=== PATIENT | male | born 1985 | race Caucasian/White ===

== ENCOUNTER 2017-01-10 06:47 | Inpatient (IN) | payer OTHER ==
[2017-01-09 09:50] VITALS: BMI 26.6
--- NOTE | 2017-01-10 05:49 | HP ---
HISTORY OF PRESENT ILLNESS: Mr. Cheung is a pleasant 31-year-old man who presents for evaluation o f several years with low back pain that has steadily been worsening as well as more recently bilatera l L5 radiculopathies right much worse than left. He and his noticed him limping a great deal in the last three months and he has noted weakness and numbness in his right leg. He is in the [facility] and has been subjected to a great deal of physical strain over the last 13 years. MRI on d isk provided reveals bilateral L5 pars defects and grade 1 slip at L5-S1 with associated severe noe inal compromise bilaterally. He has been treating this with injections and PT with no help, and he i s seeking more definitive treatment. PAST MEDICAL HISTORY: Significant for osteoarthritis and tinnitus. CURRENT MEDICATIONS: Gabapentin, naproxen, cyclobenzaprine, and ibuprofen. ALLERGIES: No known drug allergies. PAST SURGICAL HISTORY: [place]-tooth extraction. PHYSICAL EXAMINATION: The patient is alert and oriented x3. Gait is significantly altered and antal gic. Lower extremity motor exam is normal other than right lower extremity knee extension, ankle faye siflexion, which fits 4-/5 in each movement. He has no sensory disturbance that I can discern. Refl exes are diminished bilaterally at the patellar grading 1+ bilaterally. ASSESSMENT: Lumbar [facility] spondylolisthesis. PLAN: Discussed lumbar fusion with the patient and Dr. Asencio. He also then met with the patient, re viewed imaging, and advocated for an L5-S1 facetectomy and fusion. He explained to the patient the r isks, benefits, and alternatives to the procedure. The patient expressed understanding and would lik e to move forward with surgery as discussed. I do believe the patient is mentally competent and capa ble of making medical decisions for himself and we will move forward with surgery as planned. This is Xander Mon PA-C dictating for Dr. Asencio.
[2017-01-10] MEDS ORDERED: Bupivacaine/Epinephrine 0.25% 30 ML VIAL ONE (08:51)
[2017-01-10] MEDS ORDERED: Thrombin 5000 UNITS/5 ML VIAL ONE (08:51)
[2017-01-10] MEDS ORDERED: CEFAZOLIN/Water 2 GM/20 ML SYRINGE ONE ×2 (08:53→15:20)
[2017-01-10] MEDS ORDERED: Midazolam HCl 2 mg/2 ml Vial ONE (08:54)
[2017-01-10] MEDS ORDERED: Fentanyl 250 MCG/5 ML VIAL ONE (09:19)
[2017-01-10] MEDS ORDERED: Fentanyl 100 MCG/2 ML VIAL ONE ×2 (12:42→13:04)
[2017-01-10] MEDS ORDERED: Tamsulosin HCl 0.4 MG CAP ONE (13:00)
--- NOTE | 2017-01-10 13:16 | OP ---
DATE OF PROCEDURE: 01/10/2017 SURGEON: Jaun Asencio M.D. SOLAR INSTALLATION TECHNICIAN: Xander Mon PA-C INDICATION: Pain. DIAGNOSES: Spondylolisthesis with lumbar radiculopathy. PROCEDURE: L5-S1 facetectomy, L5-S1 posterior lateral instrumented fusion L5-S1, placement of allogr aft, placement of autograft. ANESTHESIA: General. TECHNIQUE: The patient was brought into the operating room and placed under general anesthesia. He was flipped from a supine to a prone position on the operating room table. A linear incision was sebsatian nned over the L5-S1 segment. After prepping and draping and after an appropriate operative pause, th e incision was created. The soft tissues were swept away from midline. Self-retaining retractors we re placed in the wound for optimal exposure. After confirming the appropriate level with C-arm fluor oscopy, Adson rongeurs as well as a high-speed cutting drill bit as well as 2, 3 and 4-mm Kerrisons w ere then used to perform facetectomies bilaterally at L5-S1. We then placed pedicle screws with the aid of C-arm fluoroscopy, the pedicles of L5 and S1 bilaterally. An intraoperative 3-D CT scan was t hen performed to confirm appropriate placement of hardware. Rods were then placed across the screw h imtiaz and final tightened under slight distraction. The wound was irrigated. Hemostasis was maintain ed throughout. Allograft and autograft material was then placed within the lateral confines of the i nstrumentation construct. The wound was then closed in anatomic layers and a pressure dressing was a pplied. There were no known procedural complications.
[2017-01-10] MEDS ORDERED: Promethazine HCl 25 MG/ML VIAL ONE (14:41)
[2017-01-10] MEDS ORDERED: Dexamethasone 20 MG/5 ML VIAL ONE (16:11)
[2017-01-10] MEDS ORDERED: Ketorolac Tromethamine 30 MG/ML VIAL ONE (16:11)
[2017-01-10] MEDS ORDERED: Ondansetron HCl/PF 4 MG/2 ML Vial ONE (16:11)
[2017-01-10] MEDS ORDERED: PHENYLEPHRINE-NS 100 MCG/ML 10 ML SYRINGE ONE (16:11)
[2017-01-10] MEDS ORDERED: Propofol 200 MG/20 ML VIAL ONE (16:11)
== END 2017-01-10 15:50 | disposition home or self-care (01) | DRG 460 ==
LOC: SURG A 06:47
PROVIDERS: ADMIT Neurological Surgery; ATTEND Neurological Surgery
PROC: 0SG3071 Fusion of Lumbosacral Joint with Autologous Tissue Substitute, Posterior Approach, Posterior Column, Open Approach (ICD-10-PCS; principal; 2017-01-10)
PROC: 0QB00ZZ Excision of Lumbar Vertebra, Open Approach (ICD-10-PCS; 2017-01-10)
PROC: 0PB40ZZ Excision of Thoracic Vertebra, Open Approach (ICD-10-PCS; 2017-01-10)
DX: M43.16 Spondylolisthesis, lumbar region (principal); F17.220 Nicotine dependence, chewing tobacco, uncomplicated; H93.19 Tinnitus, unspecified ear; M54.16 Radiculopathy, lumbar region; M19.90 Unspecified osteoarthritis, unspecified site; F43.10 Post-traumatic stress disorder, unspecified
CPT/HCPCS: 76001; 96374; C1713; C1768; J1100; J1885; J2250; J2405; J2550; J2704; J3010

== ENCOUNTER 2017-01-12 23:23 | Observation (INO) | payer OTHER, SELFPAY ==
[2017-01-12] MEDS ORDERED: Morphine 4 MG/ML VIAL ONE (23:53)
[2017-01-12] MEDS ORDERED: Ondansetron HCl/PF 4 MG/2 ML Vial ONE (23:53)
[2017-01-13 00:01] LABS: #Eosinphils 0.1 thou/uL (0.0-0.7); #Lymphocytes 1.5 thou/uL (1.20-3.40); #Neutrophils 7.4 thou/uL (1.40-6.50); %Basophils 0.3 % (0.0-1.0); %Eosinophils 0.6 % (0.0-10.0); %Monocytes 10.1 % (0.0-10.0); Hemoglobin 12.3 g/dL (14.0-18.0); Mean Corpuscular HGB CONC 33.8 g/dL (32.0-36.0); Mean Corpuscular Hemoglobin 30.1 pg (27.0-31.0); Mean Platelet Volume 7.1 fL (7.4-10.4); Platelet Count 203 thou/uL (130-400); RBC Distribution Width 11.5 % (11.5-14.5); Red Blood Cell (RBC) Count 4.09 mill/uL (4.70-6.10)
[2017-01-13 00:22] LABS: ALT (SGPT) 13 U/L (8-55); AST (SGOT) 22 U/L (5-34); Albumin 3.7 g/dL (3.5-5.0); Alkaline Phosphatase 51 U/L (40-150); Anion Gap 12 mmol/L (10-20); BUN (Urea Nitrogen) 9 mg/dL (8.9-20.6); Bilirubin, Total 1.1 mg/dL (0.2-1.2); CRP (Inflammatory) 26.37 mg/dL (= or < 0.5); Calc. Creatinine Clearance 0 mL/min (70-130); Carbon Dioxide 26 mmol/L (22-29); Chloride 102 mmol/L (98-107); Estimated GFR-MDRD Greater than 90; Glucose 103 mg/dL (70-105); Potassium 3.7 mmol/L (3.5-5.1); Protein, Total 6.7 g/dL (6.0-8.3); Sodium 136 mmol/L (136-145)
[2017-01-13] MEDS ORDERED: Bisacodyl 10 MG SUPP PR PRN (01:18)
[2017-01-13] MEDS ORDERED: traMADol HCl 50 MG TAB PO PRN (01:18)
[2017-01-13] MEDS ORDERED: Milk Of Magnesia 30 ML UDCUP PO PRN (01:18)
[2017-01-13] MEDS ORDERED: Acetaminophen 325 MG TAB PO PRN (01:18)
[2017-01-13] MEDS ORDERED: Fleet Enema 133 ML BOT PR PRN (01:18)
[2017-01-13] MEDS ORDERED: Ondansetron HCl/PF 4 MG/2 ML Vial IVP PRN (01:18)
[2017-01-13] MEDS ORDERED: Mag-Al 1200 mg/1200 mg/30 ML UDCUP PO PRN (01:18)
[2017-01-13] MEDS ORDERED: Promethazine HCl 25 MG/ML VIAL IM PRN (01:18)
[2017-01-13] MEDS ORDERED: Acetaminophen/Codeine 30-300mg Tablet PO PRN (01:18)
[2017-01-13] MEDS: Sodium Chloride 0.9% 1,000 ML IV SCH ×2 (03:31→11:19)
[2017-01-13 03:36] VITALS: BMI 27.3
[2017-01-13] MEDS: Cyclobenzaprine 10 MG TAB PO PRN (04:33)
[2017-01-13] MEDS: Gabapentin 400 MG CAP PO SCH ×3 (07:46→21:00)
[2017-01-13] MEDS: HYDROcodone/Acetaminophen 7.5/325 mg Tablet PO PRN ×3 (07:46→21:00)
--- NOTE | 2017-01-13 07:47 | HP ---
Jarvis Hutchins PA-C, dictating for Yfn Mitchell MD This is a 50-minute initial patient consult in which greater than 50% of the exam was spent in counse ling and coordinating the patient's care. The remainder of the exam was spent in review of the patie nt's medical records and appropriate imaging studies. CHIEF COMPLAINT: Fever and bilateral leg pain, status post lumbar fusion. HISTORY OF PRESENT ILLNESS: Mr. Cheung is a pleasant 31-year-old male who presents as a direct tra nsfer from [facility] at [place] to [facility] for the above complaints. The patient underwent L5-S1 posterior lumbar fusion with Dr. Asencio on 01/10/2017. The patient stat es that he began to experience fairly significant bilateral lower extremity pain one day postoperativ chin. He states that his pain was minimally control with [place] at home. He was also having slight am ount of headache and feeling feverish, so his took his temperature at home and it registered 102 .0 degrees Fahrenheit. She took the patient to the emergency room at [place] and they did extensiv e workup including ruling out a possible pulmonary embolism. In regard to patient's current complain ts, he complaints of incisional back pain as well as pain into the bilateral posterior thighs, bilate ral lateral thighs, lateral calves into the feet. He states it was present preoperatively, but signi ficantly worse on the right than the left, now it is worse on the left than the right. He states he has not been up walking very much due to his severe incisional pain. He also had one episode of urin melani retention and a Nayak catheter was placed at [place] [facility] and 800 mL of urine was ret ained. The patient denies any incontinence. The patient's had stated the incision has remained clean, dry, and intact without any drainage. Review of the patient's CT scan from [place] showed good placement of at the L5-S1 level without malfunction of hardware. PHYSICAL EXAMINATION: The patient is awake, alert, and appropriate. He does appear to be in some pa in. He follows commands in all 4 extremities equally. He is slow to move the bilateral lower extrem ities, but with good encouragement. He appears to have full strength in the bilateral lower extremit ies. He does have intact sensation to light touch throughout. His incision is clean, dry, and intac t without any drainage or dehiscence. He is oriented to person, place, and time. Pupils are equal, round, and reactive bilaterally. IMPRESSION/DIAGNOSIS: Status post lumbar spine fusion with urinary retention and postoperative fever . PLAN: I have discussed in great detail causes postoperative fever and urinary retention with the south edge and his including atelectasis as well as a narcotic pain medications. There was a question at the [place] emergency room regarding MRI of the lumbar spine, but they were unsure if the patie nt's hardware was compatible with MRI and subsequently transferred him to [place]. At this time, there is no need for further spinal imaging. We will obtain an ultrasound at the bilateral lower ext remities and follow up on his labs. We will get his pain under better control and leave the Nayak ca theter in tonight, and we will continue to monitor the patient. It should also be noted that the south edge is ambulatory and did walk into the emergency room at [place], but we have transferred via EMS to [place]. Suspicion right now are low for postoperative hematoma as the patient has good funct ion of the bilateral lower extremities. We will continue to monitor the patient. I would like him t o be n.p.o. at this time. Please call with any questions or changes in neurologic status. Otherwise , we will follow up in the morning with the patient.
--- NOTE | 2017-01-13 10:43 | ULT ---
BILATERAL LOWER EXTREMITY VENOUS ULTRASOUND WITH DOPPLER: Date: 01/13/17 HISTORY: Impaired mobility due to recent surgery. Increasing bilateral lower extremity pain. New onset fever. COMPARISON: None. TECHNIQUE: Fernandez scale, color flow, Doppler imaging, and spectral waveform analysis performed of the left and rig ht lower extremity deep venous system. FINDINGS: There is compressibility, presence of flow, and augmentation in the common femoral, femoral vein, and popliteal vein. There is flow in the greater saphenous veins, profunda veins, and posterior tibial v eins. IMPRESSION: No evidence of thrombus in the left or right lower extremity deep venous system. POS: [facility]
--- NOTE | 2017-01-13 12:25 | PRG ---
DATE OF SERVICE: 01/13/2017 HISTORY: Mr. Cheung is known to our services. Dr. Asencio recently performed a lumbar decompression fusion on him. He has done well in the postoperative period with exception of the concern of fever yesterday at an outside institution, this triggered multiple discussions between our neurosurgical te am and the caring physician at [place] and the outside medical team requested transfer back to [place]. I should note that the patient's fever is now resolved. In my opinion, it is quite consiste nt with atelectasis. He has a Nayak catheter in this morning, we will remove this and ultrasound of the lower extremities is negative, and the patient neurologically has intact strength throughout his lower extremity myotomes with a well healing wound. As expected his left buttock and left radicular pain is continuing to heal in the postoperative period and not at all worrisome. We will mobilize hi m today and I anticipate dismissal hopefully later today or tomorrow.
[2017-01-13] MEDS: Polyethylene Glycol 3350 17 GM Packet PO PRN ×3 (12:46→21:08)
[2017-01-14] MEDS: Cyclobenzaprine 10 MG TAB PO PRN ×2 (01:52→11:57)
[2017-01-14] MEDS: Sodium Chloride 0.9% 1,000 ML IV SCH (03:41)
[2017-01-14] MEDS: Gabapentin 400 MG CAP PO SCH (08:43)
[2017-01-14] MEDS: HYDROcodone/Acetaminophen 7.5/325 mg Tablet PO PRN (08:44)
[2017-01-14 09:18] VITALS: BP 121/73; TEMP 98.6
--- NOTE | 2017-01-14 13:13 | PRG ---
DATE OF SERVICE: 01/14/2017 SUBJECTIVE: Mr. Cheung is now hospital day #2 having been re-admitted for some postoperative fever and pain control issues. The patient underwent lumbar laminectomy with posterior lumbar fusion with Dr. Asencio, 01/10/2017. The patient states he is feeling much better today. He remains afebrile. H is pain is well controlled with oral medications. He has been walking. He has been voiding spontane ously and has even had a bowel movement. He is tolerating a regular diet. He is very pleased at thi s point, if his pain is under better control. He does have aching into the right buttock, which he s bethany was present preoperatively and slowly continues to improve. He remains at neurologic baseline with good strength in the bilateral lower extremities, although some of his efforts are related to so me back pain issues. He has no issues with his incision. At this time, he is stable for discharge w ith a satisfactory pain control. He will continue his gabapentin as directed and narcotic pain medic ations as well as muscle relaxants. He understands to call the office with any questions or concerns , but otherwise both he and his are pleased with his progress postoperatively. We went over his postoperative activity restrictions and ample opportunity was given to the patient and his to d iscuss their questions and concerns. He will follow up with Dr. Asencio on an outpatient basis. Jarvis Hutchins PA-C dictating for Dr. Yfn Mitchell.
--- NOTE | 2017-01-15 14:28 | DIS ---
DATE OF ADMISSION: 01/13/2017 DATE OF DISCHARGE: 01/14/2017 DISCHARGE DIAGNOSES: 1. Low back pain with bilateral leg radiculopathy. 2. Lumbar spondylolisthesis. HOSPITAL COURSE: Mr. Cheung underwent L5-S1 posterior fusion with Dr. Asencio on 01/10/2017. He brittni arently experienced some urinary retention and postoperative fever. He was later transferred from [facility] Emergency Room to [place] for the above complaints. Apparently, the patient's back pain p ostoperatively was also uncontrolled. The patient was afebrile during his entire admission. He did require 2 overnight stays to help with some urinary retention issues related to narcotic pain medicat ion. At the time of discharge on 01/14/2017, the patient was doing well postoperatively again with h is pain under satisfactory control. He was ambulating on his own, and pain controlled with oral medi cations, tolerating solids and voiding spontaneously. At the time of discharge, appropriate patient education material was provided as well as outpatient followup appointments. At the time of discharg e, the patient and his were pleased with his outcome postoperatively and pleased with their care during his stay at [facility].
== END 2017-01-14 12:52 | disposition home or self-care (01) ==
LOC: ERS 23:23 → SURG A 01-13 01:18
PROVIDERS: ADMIT Surgery; ATTEND Surgery
DX: R50.82 Postprocedural fever (principal); R33.9 Retention of urine, unspecified; G89.18 Other acute postprocedural pain; M54.5 Low back pain; M43.16 Spondylolisthesis, lumbar region; Z91.011 Allergy to milk products; Z98.1 Arthrodesis status
CPT/HCPCS: 36415; 80053; 85025; 86140; 93970; 96361; 96374; 96375; G0378; J2270; J2405